=== PATIENT | male | born 1960 | race Caucasian/White ===

== ENCOUNTER → 2024-09-15 | Emergency (ER) | payer MEDICAID ==
[~2024-09-15] VITALS: Ht 182.9 cm; Wt 79.4 kg
[2024-09-15 20:36] VITALS: BP 116/89; TEMP 98.4; O2SAT 99
== END ==
LOC: ER 20:33
DX: K08.89 Other specified disorders of teeth and supporting structures (principal); Z53.21 Procedure and treatment not carried out due to patient leaving prior to being seen by health care provider